=== PATIENT | male | born 1995 | race Two or more races ===

== ENCOUNTER → 2024-10-03 | Outpatient (CLI) | payer MEDICAID, SELFPAY ==
--- NOTE | 2024-10-03 10:30 | XR_ITS ---
Examination: CT pelvis without intravenous contrast. 2-D sagittal and coronal reconstructions. Date and time of exam: October 03, 2024 1144 hours INDICATIONS: Left hip pain several years, diagnosis primary left hip unilateral osteoarthritis CTDI: vol (mGy) :17.4 DLP: (mGycm) : 508 Technique: Multiple 3 mm axial sections of the pelvis have been obtained with the 64 slice high resolution scanner. 2-D sagittal and coronal reconstructions. Low dose protocols were performed. One or more of the following dose reduction techniques were used; automated exposure control, adjustment of the mA and/or KV according to patient size, use of iterative reconstruction technique. Findings: Severe left hip osteoarthritis Significant sclerosis involving the acetabulum and left femoral head with flattening of the left femoral head and marked narrowing of the left hip joint Small areas of radiolucency and sclerosis in the left femoral head No pelvic mass Urinary bladder intact IMPRESSION: Severe left hip osteoarthritis
== END | disposition home or self-care (01) ==
PROVIDERS: Referring Provider Orthopaedic Surgery; Visit Provider Orthopaedic Surgery
DX: M16.12 Unilateral primary osteoarthritis, left hip (principal)
CPT/HCPCS: 72192

== ENCOUNTER → 2024-11-17 | Outpatient (CLI) | payer MEDICAID, SELFPAY ==
--- NOTE | 2024-11-17 17:03 | XR_ITS ---
EXAMINATION: AP pelvis 2 views TECHNIQUE: AP supine pelvis 2 views Date and time: November 17, 2024, 1515 hours INDICATION: Injury to the left hip as a child, hip pain. FINDINGS: Moderate to advanced left hip osteoarthritis Old deformity of the left femoral head No acute fracture Bones of the pelvis intact IMPRESSION: Moderate to advanced left hip osteoarthritis Old deformity left femoral head
== END | disposition home or self-care (01) ==
PROVIDERS: PCP Physician Assistant; Referring Provider Orthopaedic Surgery; Visit Provider Orthopaedic Surgery
DX: M16.12 Unilateral primary osteoarthritis, left hip (principal); M21.852 Other specified acquired deformities of left thigh
CPT/HCPCS: 72170